=== PATIENT | female | born 1985 | race African-American/Black ===

== ENCOUNTER 2022-01-12 19:07 | Emergency (ER) | payer MEDICAID, SELFPAY | END 2022-01-12 19:41 | disposition home or self-care (01) | LOC: ERS 19:07 | DX: J45.901 Unspecified asthma with (acute) exacerbation (principal) | CPT/HCPCS: 99284 ==

== ENCOUNTER 2022-02-03 03:05 | Emergency (ER) | payer MEDICARE, MEDICAID | END 2022-02-03 04:27 | disposition home or self-care (01) | LOC: ERS 03:05 | DX: F41.9 Anxiety disorder, unspecified (principal); J45.909 Unspecified asthma, uncomplicated | CPT/HCPCS: 99284 ==